=== PATIENT | female | born 1945 | race African-American/Black ===

== ENCOUNTER 2023-09-13 16:22 | Emergency (ER) | payer OTHER ==
[~2023-09-13] VITALS: Ht 152.4 cm; Wt 77.0 kg
[2023-09-13 16:25] VITALS: BP 142/78; PULSE 80; RESP 15; TEMP 98.8; O2SAT 99
== END 2023-09-13 22:24 | disposition left against medical advice (07) ==
LOC: ER 16:34
DX: R10.9 Unspecified abdominal pain (principal); Z53.21 Procedure and treatment not carried out due to patient leaving prior to being seen by health care provider
CPT/HCPCS: 99281

== ENCOUNTER 2023-11-10 22:33 | Emergency (ER) | payer OTHER ==
[~2023-11-10] VITALS: Ht 172.7 cm; Wt 76.0 kg
[2023-11-10 22:57] VITALS: O2SAT 100
[2023-11-10 23:00] VITALS: TEMP 97.7
[2023-11-11 00:22] LABS: BASOPHILS % 0.7 % (0.0-2.0); HEMOGLOBIN. 10.9 g/dL (12.0-16.0); LYMPHOCYTES % 38.7 % (20.0-50.0); MEAN CORPUSCULAR HEMOGLOBIN 30.4 pg (28.0-32.0); MEAN CORPUSCULAR HGB CONC 33.2 g/dL (31.0-37.0); MEAN CORPUSCULAR VOLUME 91.6 fL (81.0-99.0); MONOCYTES % 8.1 % (2.0-8.0); NEUTROPHILS % 48.5 % (40.0-76.0); PLATELET 255 x1000/uL (130-400); RED CELL DISTRIBUTION WIDTH 14.9 % (11.6-14.6); WHITE BLOOD COUNT 3.8 x1000/uL (4.5-11.0)
[2023-11-11 00:26] LABS: CHLORIDE 110 mEq/L (98-107); POTASSIUM 3.6 mEq/L (3.5-5.1); SODIUM 142 mEq/L (136-145)
[2023-11-11 00:27] LABS: CALCIUM 9.1 mg/dL (8.7-10.4); CARBON DIOXIDE 25 mEq/L (21-32)
[2023-11-11 00:32] LABS: GLUCOSE 109 mg/dL (70-105); UREA NITROGEN BLOOD 24 mg/dL (9-23)
[2023-11-11 00:33] LABS: AMMONIA < 17 uMol/L (<32); LACTIC ACID 2.2 mmol/L (0.4-2.0)
[2023-11-11 00:45] LABS: CLARITY URINE CLEAR (CLEAR); COLOR URINE YELLOW (YELLOW); GLUCOSE URINE NEGATIVE (NEGATIVE); KETONES URINE TRACE (NEGATIVE); LEUKOCYTE ESTERASE URINE NEGATIVE (NEGATIVE); NITRITE URINE NEGATIVE (NEGATIVE); OCCULT BLOOD URINE NEGATIVE (NEGATIVE); PH URINE 5.5 (4.5-8.0); PROTEIN URINE TRACE (NEGATIVE); SPECIFIC GRAVITY URINE 1.026 (1.005-1.030); UROBILINOGEN URINE 0.2 E.U./dL (0.2-1.0)
[2023-11-11] MEDS: SODIUM CHLORIDE 0.9% 1,000 ML IV ONE (00:48)
[2023-11-11 00:52] LABS: *AMPHETAMINES SCREEN URINE NEGATIVE (NEGATIVE); *BARBITURATES SCREEN URINE NEGATIVE (NEGATIVE); *BENZODIAZEPINES SCREEN URINE NEGATIVE (NEGATIVE); *COCAINE SCREEN URINE NEGATIVE (NEGATIVE)
[2023-11-11 00:53] LABS: CANNABINOID URINE SCREEN NEGATIVE (NEGATIVE); ECSTASY MDMA SCREEN URINE NEGATIVE (NEGATIVE); METHADONE URINE SCREEN Neg (NEGATIVE); OPIATES URINE SCREEN PRESUMPTIVE POSITIVE (NEGATIVE); PHENCYCLIDINE URINE SCREEN NEGATIVE (NEGATIVE)
[2023-11-11 01:02] LABS: TROPONIN I HIGH SENSITIVITY 6 ng/L (3.0-34)
[2023-11-11 01:03] LABS: ACETAMINOPHEN < 2 ug/mL (10-30); ALANINE AMINOTRANSFERASE 10 IU/L (10-49); ALBUMIN 4.2 g/dL (3.2-4.8); ASPARTATE AMINOTRANSFERASE 22 IU/L (<34); BILIRUBIN TOTAL 0.3 mg/dL (0.1-1.0); ETHANOL BLOOD < 10 mg/dL (<10); PROTEIN TOTAL 6.8 g/dL (6.0-8.3)
[2023-11-11 02:45] LABS: RBC URINE 0-2 /hpf (0-2); WBC URINE 0-2 /hpf (0-2); YEAST URINE NONE SEEN
[2023-11-11 02:50] LABS: BACTERIA URINE TRACE
[2023-11-11 03:00] VITALS: BP 153/85; PULSE 55; RESP 18
== END 2023-11-11 05:45 | disposition home or self-care (01) ==
LOC: ER 22:33
DX: M54.9 Dorsalgia, unspecified (principal); J45.909 Unspecified asthma, uncomplicated; I10 Essential (primary) hypertension; R41.82 Altered mental status, unspecified
CPT/HCPCS: 36415; 71045; 99284; 80053; 80305; 81003; 80307; 80329; 80320; 82140; 83605; 85025; 84484; 70450; 96360; 96361; J7030; G0480

== ENCOUNTER 2024-01-13 18:55 | Emergency (ER) | payer OTHER ==
[~2024-01-13] VITALS: Ht 160 cm; Wt 74.0 kg
[2024-01-13 19:07] VITALS: BP 188/93; PULSE 76; RESP 16; TEMP 98; O2SAT 100
== END 2024-01-13 20:53 | disposition left against medical advice (07) ==
LOC: ER 18:55
DX: A64 Unspecified sexually transmitted disease (principal); J45.909 Unspecified asthma, uncomplicated; I10 Essential (primary) hypertension
CPT/HCPCS: 36415; 86592; 99283

== ENCOUNTER 2024-02-17 01:11 | Emergency (ER) | payer OTHER ==
[~2024-02-17] VITALS: Ht 160 cm; Wt 82.0 kg
[2024-02-17 01:31] VITALS: O2SAT 100
[2024-02-17] MEDS ORDERED: IBUPROFEN 400MG TABLET PO ONE (02:00)
[2024-02-17 03:11] VITALS: BP 196/100; PULSE 98; RESP 20; TEMP 98
== END 2024-02-17 03:19 | disposition home or self-care (01) ==
LOC: ER 01:11
DX: M19.041 Primary osteoarthritis, right hand (principal); I10 Essential (primary) hypertension; J45.909 Unspecified asthma, uncomplicated
CPT/HCPCS: 73130; 99283

== ENCOUNTER 2024-02-24 19:07 | Emergency (ER) | payer OTHER ==
[~2024-02-24] VITALS: Ht 162.6 cm; Wt 77.1 kg
[2024-02-24 20:26] LABS: CHLORIDE 104 mEq/L (98-107); POTASSIUM 3.4 mEq/L (3.5-5.1); SODIUM 141 mEq/L (136-145)
[2024-02-24 20:27] LABS: BASOPHILS % 0.9 % (0.0-2.0); CALCIUM 10.2 mg/dL (8.7-10.4); CARBON DIOXIDE 27 mEq/L (21-32); EOSINOPHILS % 1.1 % (0.0-5.0); HEMATOCRIT. 39.1 % (36.0-48.0); HEMOGLOBIN. 12.9 g/dL (12.0-16.0); LYMPHOCYTES % 33.4 % (20.0-50.0); MEAN CORPUSCULAR VOLUME 91.1 fL (81.0-99.0); MEAN PLATELET VOLUME 8.9 fl (7.4-10.4); MONOCYTES % 4.5 % (2.0-8.0); NEUTROPHILS % 60.1 % (40.0-76.0); PLATELET 253 x1000/uL (130-400); RED BLOOD CELL COUNT 4.29 mill/uL (4.2-5.4); RED CELL DISTRIBUTION WIDTH 14.2 % (11.6-14.6); WHITE BLOOD COUNT 5.7 x1000/uL (4.5-11.0)
[2024-02-24 20:32] LABS: CREATININE 1.1 mg/dL (0.6-1.0); GLUCOSE 107 mg/dL (70-105); UREA NITROGEN BLOOD 18 mg/dL (9-23)
[2024-02-24 20:34] LABS: ACETAMINOPHEN < 2 ug/mL (10-30)
[2024-02-24 20:36] LABS: ETHANOL BLOOD < 10 mg/dL (<10)
[2024-02-24] MEDS: LORAZEPAM 2MG/ML INJ IM ONE (20:51)
[2024-02-25] MEDS: HALOPERIDOL LACTATE 5MG/ML VIAL IM ONE ×2 (00:51→00:52)
[2024-02-25] MEDS: DIPHENHYDRAMINE 50MG/ML VIAL IM ONE (00:52)
[2024-02-25 07:29] VITALS: O2SAT 98
[2024-02-25] MEDS: POTASSIUM CHLORIDE 20MEQ/PACKET PO ONE (10:05)
[2024-02-26 02:31] LABS: CLARITY URINE CLEAR (CLEAR); COLOR URINE YELLOW (YELLOW); GLUCOSE URINE NEGATIVE (NEGATIVE); KETONES URINE 1+ (NEGATIVE); LEUKOCYTE ESTERASE URINE NEGATIVE (NEGATIVE); NITRITE URINE NEGATIVE (NEGATIVE); OCCULT BLOOD URINE NEGATIVE (NEGATIVE); PH URINE 5.5 (4.5-8.0); PROTEIN URINE 1+ (NEGATIVE); SPECIFIC GRAVITY URINE 1.022 (1.005-1.030); UROBILINOGEN URINE 0.2 E.U./dL (0.2-1.0)
[2024-02-26 02:44] LABS: *AMPHETAMINES SCREEN URINE NEGATIVE (NEGATIVE); *BARBITURATES SCREEN URINE NEGATIVE (NEGATIVE); *BENZODIAZEPINES SCREEN URINE NEGATIVE (NEGATIVE); *COCAINE SCREEN URINE NEGATIVE (NEGATIVE); CANNABINOID URINE SCREEN NEGATIVE (NEGATIVE); ECSTASY MDMA SCREEN URINE NEGATIVE (NEGATIVE); METHADONE URINE SCREEN NEGATIVE (NEGATIVE); OPIATES URINE SCREEN NEGATIVE (NEGATIVE); PHENCYCLIDINE URINE SCREEN NEGATIVE (NEGATIVE)
[2024-02-26 07:39] LABS: MUCUS URINE TRACE /lpf (< = 2+)
[2024-02-26 07:40] LABS: SQUAMOUS EPITHELIAL CELL URINE NONE SEEN /lpf (RARE/1+)
[2024-02-26 07:41] LABS: BACTERIA URINE TRACE; RBC URINE 0-2 /hpf (0-2); WBC URINE 0-2 /hpf (0-2)
[2024-02-26] MEDS: HALOPERIDOL LACTATE 5MG/ML VIAL IM ONE (14:20)
[2024-02-26 14:38] VITALS: BP 166/65; PULSE 92; RESP 17; TEMP 36.11400; O2SAT 100
== END 2024-02-26 11:18 ==
LOC: ER 19:07
DX: R46.2 Strange and inexplicable behavior (principal); J45.909 Unspecified asthma, uncomplicated; I10 Essential (primary) hypertension; Z04.6 Encounter for general psychiatric examination, requested by authority; Z20.822 Contact with and (suspected) exposure to COVID-19
CPT/HCPCS: 80305; 80048; 81003; 80307; 80329; 80320; 85025; 36415; 96372 ×3; 99291; 87426; J1630 ×3; J2060; G0480